=== PATIENT | male | born 1975 | race American Indian/Alaskan Native ===

== ENCOUNTER 2022-04-12 21:32 | Observation (INO) | payer MEDICAID ==
[2022-04-12] MEDS ORDERED: LORazepam 1 MG Tab PO ONE (21:52)
[2022-04-12] MEDS ORDERED: Ondansetron 4 MG Tab.DIS PO ONE (21:53)
[2022-04-12] MEDS ORDERED: LORazepam 2 MG/ML SDV IVPUSH ONE (22:47)
[2022-04-12 23:05] LABS: METHAMPHETAMINES,URINE NEGATIVE (NEGATIVE)
[2022-04-12 23:06] LABS: AMPHETAMINES,URINE NEGATIVE (NEGATIVE); BARBITURATES,URINE NEGATIVE (NEGATIVE); BENZODIAZEPINE,URINE POSITIVE (NEGATIVE); MDMA (ECSTASY), URINE NEGATIVE (NEGATIVE); METHADONE,URINE NEGATIVE (NEGATIVE); OPIATES,URINE NEGATIVE (NEGATIVE); OXYCODONE,URINE NEGATIVE (NEGATIVE); PHENCYCLIDINE,URINE NEGATIVE (NEGATIVE); TCA,URINE NEGATIVE (NEGATIVE)
[2022-04-12 23:15] LABS: ANION GAP 11.2 mEq/L (7-13); CHLORIDE,CL 106 mmol/L (98-107); SODIUM,NA 143 mmol/L (136-145)
[2022-04-12] MEDS ORDERED: oxyCODONE 5 MG Tab PO PRN (23:32)
[2022-04-12] MEDS ORDERED: Ondansetron 4 MG Tab.DIS PO PRN (23:32)
[2022-04-12] MEDS ORDERED: Acetaminophen 325 MG Tab PO PRN (23:32)
[2022-04-12] MEDS ORDERED: Potassium Chloride 10 MEQ Tab.ER PO ONE (23:43)
[2022-04-12] MEDS ORDERED: Sodium Chloride 0.9% 1,000 ML IV SCH (23:45)
[2022-04-13] MEDS: LORazepam 2 MG/ML SDV IVPUSH PRN ×2 (00:46→12:22)
[2022-04-13] MEDS: LORazepam 0.5 MG Tab PO PRN ×2 (05:44→10:39)
[2022-04-13] MEDS ORDERED: Folic Acid 1 MG Tab PO SCH (09:00)
[2022-04-13] MEDS ORDERED: Multivitamin Tab PO SCH (09:00)
[2022-04-13] MEDS ORDERED: Nicotine 21 MG/24 Hr Patch TRDERM SCH (09:00)
[2022-04-13] MEDS ORDERED: Potassium Chloride 20 MEQ in Premix Bag 1 BAG IV ONE (14:14)
[2022-04-13] MEDS ORDERED: Thiamine 100 MG Tab PO SCH (21:00)
== END 2022-04-13 14:40 | disposition home or self-care (01) ==
LOC: DL.ED 21:32 → DL.MS 22:56 → UNDOADMOB 22:56 → DL.MS 23:36
PROVIDERS: ADMIT Internal Medicine; ATTEND Internal Medicine
DX: F10.139 Alcohol abuse with withdrawal, unspecified (principal); I10 Essential (primary) hypertension; F41.9 Anxiety disorder, unspecified; F32.A Depression, unspecified; Z79.899 Other long term (current) drug therapy; Z20.822 Contact with and (suspected) exposure to COVID-19; Z90.49 Acquired absence of other specified parts of digestive tract; F17.210 Nicotine dependence, cigarettes, uncomplicated
CPT/HCPCS: 36415; 80053; 80305; 80307; 82150; 83690; 85025; 87635; 96374; 99283; 99285; A9270; J2060; J7030; 96376; G0378; U0002